=== PATIENT | female | born 1955 | race Two or more races ===

== ENCOUNTER 2021-12-01 20:01 | Emergency (ER) | payer MEDICARE, OTHER ==
[~2021-12-01] VITALS: Ht 149.9 cm; Wt 99.8 kg
[2021-12-01 21:12] LABS: Basophils # (auto) 0 10 ^3/uL (0-0.2); Basophils % (auto) 0.4 % (0.0-2.0); Eosinophils # (auto) 0.2 10 ^3/uL (0-0.8); Hematocrit 40.9 % (36.0-46.0); Lymphocytes # (auto) 2.9 10 ^3/uL (0.4-5.4); Lymphocytes % (auto) 26.6 % (10.0-50.0); Mean Corpuscular Hemoglobin 30.3 pg (28.0-32.0); Mean Corpuscular Hgb Conc. 34.2 g/dL (32.0-36.0); Mean Corpuscular Volume 88.5 fL (80.0-100.0); Monocytes # (auto) 0.8 10 ^3/uL (0-1.3); Monocytes % (auto) 7.1 % (0.0-12.0); Neutrophils # (auto) 7.1 10 ^3/uL (1.6-8.6); Neutrophils % (auto) 63.9 % (37.0-80.0); Nucleated Red Blood Cells % 0.1 %; Red Blood Cells 4.62 10^6/uL (4.0-5.20); Red Cell Distribution Width 13.6 % (11.8-14.3); White Blood Cell 11.1 10^3/uL (4.4-10.8)
[2021-12-01] MEDS ORDERED: KETOROLAC TROMETH 30 MG/ML 1ML VIAL IV ONE (21:15)
[2021-12-01 21:25] LABS: Albumin 3.7 g/dL (3.4-5.0); BUN/Creatinine Ratio 28.6; Calcium 8.8 mg/dL (8.5-10.1); Potassium 3.5 mmol/L (3.5-5.1)
[2021-12-01 21:28] LABS: Bilirubin, Total 0.4 mg/dL (0.2-1.0); Total Protein 7.3 g/dL (6.4-8.2)
[2021-12-01 21:29] LABS: INR 0.99 (0.9-1.15); Partial Thromboplastin Time 23.9 sec (23.6-33.0)
[2021-12-01 23:00] VITALS: BP 144/85
== END 2021-12-01 23:00 | disposition home or self-care (01) ==
LOC: ER 20:01 → EDBD 20:01 → ER 23:00
DX: S06.0X0A Concussion without loss of consciousness, initial encounter (principal); S06.2X9A Diffuse traumatic brain injury with loss of consciousness of unspecified duration, initial encounter; W22.8XXA Striking against or struck by other objects, initial encounter; Y93.89 Activity, other specified; Y92.89 Other specified places as the place of occurrence of the external cause; Y99.8 Other external cause status
CPT/HCPCS: 36415; 70450; 72125; 80053; 85025; 85610; 85730; 96372; 99284; J1885

== ENCOUNTER 2022-08-25 08:56 | Emergency (ER) | payer OTHER, MEDICAID ==
[~2022-08-25] VITALS: Ht 152.4 cm; Wt 83.3 kg
[2022-08-25] MEDS ORDERED: cefTRIAXone SOD 1,000 MG VL IM ONE (09:45)
[2022-08-25 10:06] VITALS: BP 135/86
[2022-08-25] MEDS ORDERED: AZIT500T66 PO (10:20)
[2022-08-25] MEDS ORDERED: GLIM2TAB33 PO (10:20)
[2022-08-25] MEDS ORDERED: ALBU108A5 IN (10:20)
== END 2022-08-25 10:27 | disposition home or self-care (01) ==
LOC: ER 08:56
DX: J03.90 Acute tonsillitis, unspecified (principal); J20.9 Acute bronchitis, unspecified; E11.9 Type 2 diabetes mellitus without complications
CPT/HCPCS: 71046; 96372; 99283; J0696

== ENCOUNTER → 2022-08-25 | Outpatient (CLI) | payer OTHER ==
[~2022-08-25] MED LIST: ALBU108A5 IN; AZIT500T66 PO; GLIM2TAB33 PO
[2022-08-25 09:11] LABS: Albumin 3.9 g/dL (3.4-5.0); Calcium 8.9 mg/dL (8.5-10.1); Potassium 3.9 mmol/L (3.5-5.1)
[2022-08-25 09:16] LABS: BUN/Creatinine Ratio 33.3; Bilirubin, Total 0.6 mg/dL (0.2-1.0); Total Protein 7.4 g/dL (6.4-8.2)
== END | disposition home or self-care (01) ==
LOC: LAB 08:49
PROVIDERS: ATTEND Student in an Organized Health Care Education/Training Program
DX: Z12.11 Encounter for screening for malignant neoplasm of colon (principal); I10 Essential (primary) hypertension; E11.9 Type 2 diabetes mellitus without complications
CPT/HCPCS: 36415; 80053; 80061

== ENCOUNTER 2025-04-29 09:03 | Outpatient (CLI) | payer OTHER ==
[2025-04-29 09:43] LABS: Hematocrit 41.8 % (36.0-46.0); Hemoglobin 14.3 g/dL (12.2-16.2); Mean Corpuscular Hemoglobin 31.2 pg (28.0-32.0); Mean Corpuscular Volume 91.3 fL (80.0-100.0); Nucleated Red Blood Cells % 0.2 %; Urine Protein, UAD Negative (Negative)
[2025-04-29 10:06] LABS: Alanine Aminotransferase 33 U/L (7-40); Albumin 4.2 g/dL (3.2-4.8); Anion Gap 11 (5-15); BUN/Creatinine Ratio 16.1 (10.0-20.0); Blood Urea Nitrogen 10 mg/dL (9-23); Calcium 8.9 mg/dL (8.7-10.4); Carbon Dioxide 27 mmol/L (20-31); Chloride 101 mmol/L (98-107); Potassium 4.0 mmol/L (3.5-5.1); Sodium 139 mmol/L (136-145); Total Protein 7.0 g/dL (5.7-8.2)
[2025-04-29 10:07] LABS: Cholesterol 122 mg/dL (< 200)
[2025-04-29 10:08] LABS: Bilirubin, Total 0.6 mg/dL (0.2-1.0)
[2025-04-29 10:10] LABS: Alkaline Phosphatase 123 U/L (46-116); Glucose 276 mg/dL (74-106); HDL Cholesterol 35 mg/dL (40-59); Triglycerides 225 mg/dL (< 150)
[2025-04-29 10:31] LABS: Microalb/Creat Ratio, Urine 122.0
== END 2025-04-29 17:00 | disposition home or self-care (01) ==
LOC: LAB 09:03
PROVIDERS: ATTEND Student in an Organized Health Care Education/Training Program
DX: I10 Essential (primary) hypertension (principal); E11.29 Type 2 diabetes mellitus with other diabetic kidney complication
CPT/HCPCS: 36415; 80053; 80061; 81001; 82043; 82306; 82570; 83036; 84443; 85025